=== PATIENT | male | born 1940 ===

== ENCOUNTER 2017-01-01 18:04 | Emergency (ER) | payer OTHER ==
[2017-01-01 19:10] LABS: ABSOLUTE BASOPHIL COUNT 0 /CUMM (0.0-0.2); ABSOLUTE EOSINOPHIL COUNT 0 /CUMM (0.0-0.7); ABSOLUTE GRANULOCYTE CT 8.2 /CUMM (1.4-6.5); ABSOLUTE LYMPH COUNT 0.9 /CUMM (1.2-3.4); ABSOLUTE MONOCYTE COUNT 0.9 /CUMM (0.10-0.60); BASOPHIL % 0 % (0.0-2.0); EOSINOPHIL % 0.1 % (0-5); GRANULOCYTE % 82.4 % (42.2-75.2); HEMATOCRIT 42.9 % (42-52); MEAN CORPUSCULAR HGB 31.3 PG (27.0-31.0); MEAN CORPUSCULAR HGB CONC 33.5 G/DL (33.0-37.0); MEAN CORPUSCULAR VOLUME 93.6 FL (80.0-94.0); MEAN PLATELET VOLUME 7.1 FL (7.4-10.4); PLATELET COUNT 237 /CUMM (130-400); RBC DISTRIBUTION WIDTH 12.9 % (11.5-14.5); RED BLOOD CELL CT 4.58 /CUMM (4.70-6.10); WHITE BLOOD CELL COUNT 9.9 /CUMM (4.8-10.8)
--- NOTE | 2017-01-01 20:23 | ED GI/GU/ABDOMINAL COMPLAINT ---
History of Present Illness General Chief Complaint: General Adult Stated Complaint: "THINK I HAVE FOOD POISONING" PER PT Source: patient, old records Exam Limitations: no limitations Vital Signs & Intake/Output Vital Signs & Intake/Output Vital Signs Date Time Temp Pulse Resp B/P Pulse O2 O2 Flow FiO2 Ox Delivery Rate 01/01 2149 98.1 71 20 121/78 96 Room Air 01/01 2027 Room Air 01/02 1852 97.5 74 22 135/86 95 Allergies Coded Allergies: No Known Allergies (01/01/17) Triage Note: PER PT ABD PAIN AND VOMITING SINCE YESTERDAY [facility] BUT STILL VOMITNG Triage Nurses Notes Reviewed? yes Onset: 2 days Duration: day(s):, continues in ED, waxing and waning Timing: recent history Quality/Severity: aching, moderate, vomiting Location: generalized abdomen Radiation: no radiation Activities at Onset: none Prior Abdominal Problems: none Past Sexual History: Unobtainable at this time Sexually Active: No Modifying Factors: Improves With: vomiting. Worsens With: eating, palpation. Associated Symptoms: abdominal pain, diarrhea, loss of appetite, nausea/vomiting HPI: 2 days prior to admission patient developed nausea vomiting frequent loose watery stool crampy generalized abdominal pain. He was seen at a walk in center yesterday and prescribed Zofran and continues with nausea and decreased appetite worsening abdominal discomfort. Denies fever chills chest pain cough shortness of breath headache dysuria rash bleeding. His mother was recently hospitalized in the ICU. Past History Travel History Traveled to [place] past 21 day No Medical History Any Pertinent Medical History? see below for history Neurological: NONE EENT: NONE Cardiovascular: HIGH CHOL Respiratory: NONE Gastrointestinal: NONE Hepatic: NONE Renal: NONE Musculoskeletal: NONE Psychiatric: NONE Endocrine: NONE Surgical History Surgical History: non-contributory Psychosocial History What is your primary language Nauruan Tobacco Use: Never used Family History Hx Contributory? No Review of Systems Review of Systems Constitutional: Reports: see HPI, malaise. EENTM: Reports: no symptoms. Respiratory: Reports: no symptoms. Cardiovascular: Reports: no symptoms. GI: Reports: see HPI, abdominal pain, diarrhea, nausea, vomiting. Genitourinary: Reports: no symptoms. Musculoskeletal: Reports: no symptoms. Skin: Reports: no symptoms. Neurological/Psychological: Reports: no symptoms. Hematologic/Endocrine: Reports: no symptoms. Immunologic/Allergic: Reports: no symptoms. All Other Systems: Reviewed and Negative Physical Exam Physical Exam General Appearance: well developed/nourished, alert, awake, anxious, moderate distress Head: atraumatic, normal appearance Eyes: Bilateral: normal appearance, PERRL, EOMI, normal inspection. Ears, Nose, Throat, Mouth: hearing grossly normal, dry mucous membranes Neck: normal inspection, supple, full range of motion, normal alignment, no midline tenderness Respiratory: normal breath sounds, chest non-tender, no respiratory distress, quiet respiration, lungs clear Cardiovascular: regular rate/rhythm, normal peripheral pulses, norml femoral pulses equa Peripheral Pulses: 4+ carotid (R), 4+ carotid (L) Gastrointestinal: soft, abnormal bowel sounds, distention, mild diffuse tenderness Male Genitals: normal genitalia Back: normal inspection, normal range of motion Extremities: normal range of motion, no ligament instability Neurologic/Psych: no motor/sensory deficits, awake, alert, oriented x 3, normal gait, normal mood/affect, 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 No Severe Sepsis Present: No Septic Shock Present: No Progress Differential Diagnosis: biliary colic, cholecystitis, diverticulitis, gastritis, pancreatitis Plan of Care: Orders Procedure Date/time Status LIPASE 01/01 1853 Complete COMPREHENSIVE METABOLIC PANEL 01/01 1853 Complete CBC WITHOUT DIFFERENTIAL 01/01 1853 Complete AMYLASE 01/01 1853 Complete Laboratory Tests 01/01/17 1900: Anion Gap 11, Estimated GFR > 60, BUN/Creatinine Ratio 23.3, Glucose 132 H, Calcium 9.0, Total Bilirubin 1.1, AST 81 H, ALT 94 H, Alkaline Phosphatase 61, Total Protein 7.4, Albumin 4.3, Globulin 3.1, Albumin/Globulin Ratio 1.4, Amylase < 30 L, Lipase 27, CBC w Diff NO MAN DIFF REQ, RBC 4.58 L, MCV 93.6, MCH 31.3 H, RDW 12.9, MPV 7.1 L, Gran % 82.4 H, Lymphocytes % 8.9 L, Monocytes % 8.6, Eosinophils % 0.1, Basophils % 0 L, Absolute Granulocytes 8.2 H, Absolute Lymphocytes 0.9 L, Absolute Monocytes 0.9 H, Absolute Eosinophils 0, Absolute Basophils 0, PUBS MCHC 33.5 Diagnostic Imaging: Viewed by Me: CT Scan. Discussed w/RAD: CT Scan. Radiology Impression: Scattered nonpathologically enlarged mesenteric lymph nodes with adjacent fat stranding. This is nonspecific, but could correspond to mesenteritis. No abdominal or pelvic free fluid. Hepatic steatosis. Small hiatal hernia. Air-fluid levels present within colon. This is nonspecific, but consider gastroenteritis. Initial ED EKG: none Departure Departure Time of Disposition: 2232 Disposition: HOME OR SELF CARE Condition: Stable Clinical Impression Primary Impression: Nausea, vomiting and diarrhea Secondary Impressions: Abdominal pain Qualifiers: Abdominal location: unspecified location Qualified Code: R10.9 - Unspecified abdominal pain Referrals: PATIENT HAS NO PRIMARY CARE DR (PCP/Family) Additional Instructions: Clear liquids in small amounts for 12-24 hours until better. Departure Forms: Customer Survey General Discharge Information Prescriptions: Current Visit Scripts Hyoscyamine Sulfate (Levsin-Sl) 1-2 TAB SL Q4P PRN abd cramps #30 TAB Metoclopramide HCl (Reglan) 1 TAB PO 4 TIMES/DAY PRN nausea #30 TAB 30 minutes before meals and bedtime
--- NOTE | 2017-01-01 21:42 | CT SCAN REPORT ---
EXAMINATION: CT ABDOMEN AND PELVIS WITH CONTRAST CLINICAL INFORMATION: Nausea and vomiting, abdominal distention. COMPARISON: None. TECHNIQUE: Contiguous axial thin section helical images of the abdomen and pelvis were performed following the administration of 100 mL of intravenous Omnipaque 300. The data set was reformatted in the coronal and sagittal planes and reviewed on an independent workstation. DLP: 550 mGy-cm. FINDINGS: There is streaky bibasilar atelectasis. The visualized lung bases are otherwise clear. The visualized portions of the heart are unremarkable. There is a small hiatal hernia. The liver is of normal size and diffuse decreased attenuation without focal lesions nor intrahepatic biliary ductal dilation. A normal gallbladder is identified. There is no wall thickening or discernible pericholecystic fluid. The spleen, pancreas, adrenal glands are unremarkable. Both kidneys are of normal size and attenuation without hydronephrosis or nephrolithiasis. Following the administration of IV contrast, prompt symmetric nephrograms are displayed. There are bilateral renal cysts. There is no abdominal free fluid. There are scattered nonpathologically enlarged mesenteric lymph nodes with mild adjacent stranding. There are several air-fluid levels present within nondilated loops of colon. No dilated loops of small bowel are identified. There is no pelvic free fluid. The urinary bladder is unremarkable. There is neither pelvic nor inguinal lymphadenopathy. Bone windows: Neither sclerotic nor lytic bone lesions are identified. IMPRESSION: Scattered nonpathologically enlarged mesenteric lymph nodes with adjacent fat stranding. This is nonspecific, but could correspond to mesenteritis. No abdominal or pelvic free fluid. Hepatic steatosis. Small hiatal hernia. Air-fluid levels present within colon. This is nonspecific, but consider gastroenteritis.
[2017-01-01] MEDS ORDERED: REGLAN10 M1 PO (22:41)
[2017-01-01] MEDS ORDERED: LEVSIN-SL0.125 MG SL (22:41)
[2017-01-01 23:10] VITALS: BP 122/76
== END 2017-01-01 23:15 ==
LOC: ERH 18:04
PROVIDERS: Emergency Medicine
DX: R11.2 Nausea with vomiting, unspecified (principal); R19.7 Diarrhea, unspecified; R10.84 Generalized abdominal pain
CPT/HCPCS: 74177; 96361; 96374; 96375; J2405